=== PATIENT | female | born 1965 | race Caucasian/White ===

== ENCOUNTER → 2018-07-25 11:16 | Outpatient (CLI) | payer OTHER ==
[~2018-07-25 11:16] MED LIST: COLACE100 MG PO; PERCOCET 5-3251 EACH PO; SYNTHROID50 MCG PO
== END | disposition home or self-care (01) ==
LOC: LAB 11:16
DX: K60.1 Chronic anal fissure (principal); K62.5 Hemorrhage of anus and rectum; Z86.010 Personal history of colon polyps; K59.09 Other constipation

== ENCOUNTER 2018-07-27 09:35 | Inpatient (IN) | payer OTHER ==
[~2018-07-27] VITALS: Ht 162.6 cm; Wt 77.1 kg
[2018-07-27] MEDS ORDERED: SYNTHROID50 MCG PO (10:07)
[2018-07-28] MEDS ORDERED: COLACE100 MG PO (13:34)
[2018-07-28] MEDS ORDERED: PERCOCET 5-3251 EACH PO (13:34)
== END 2018-07-28 19:22 | disposition home or self-care (01) | DRG 348 ==
LOC: ER 09:35 → SEC-K 18:07 → SURG 18:07
PROVIDERS: Surgery
PROC: 0DBQ7ZZ Excision of Anus, Via Natural or Artificial Opening (ICD-10-PCS; 2018-07-28)
PROC: 3E0T3BZ Introduction of Anesthetic Agent into Peripheral Nerves and Plexi, Percutaneous Approach (ICD-10-PCS; 2018-07-28)
PROC: 0D8R3ZZ Division of Anal Sphincter, Percutaneous Approach (ICD-10-PCS; principal; 2018-07-28 21:30)
DX: K60.1 Chronic anal fissure (principal); D68.0 Von Willebrand disease; K62.5 Hemorrhage of anus and rectum; K62.89 Other specified diseases of anus and rectum

== ENCOUNTER → 2019-02-27 16:32 | Outpatient (CLI) | payer OTHER | END | disposition home or self-care (01) | LOC: LAB 16:32 | DX: D68.0 Von Willebrand disease (principal); E03.8 Other specified hypothyroidism; Z86.010 Personal history of colon polyps; D50.8 Other iron deficiency anemias; D51.8 Other vitamin B12 deficiency anemias; I10 Essential (primary) hypertension; D68.8 Other specified coagulation defects ==

== ENCOUNTER → 2019-03-05 | Day surgery (SDC) | payer OTHER | END | disposition home or self-care (01) | LOC: ADM 02-27 15:30 → AMB-ENDOS 08:00 → CIR.AMB 15:30 | DX: K57.30 Diverticulosis of large intestine without perforation or abscess without bleeding (principal); Z86.010 Personal history of colon polyps; K59.09 Other constipation ==

== ENCOUNTER 2019-05-08 07:29 | Outpatient (CLI) | payer OTHER | END 2019-05-08 07:47 | disposition home or self-care (01) | LOC: LAB 07:29 | DX: E03.8 Other specified hypothyroidism (principal); D68.0 Von Willebrand disease; Z86.010 Personal history of colon polyps; D50.8 Other iron deficiency anemias; D51.8 Other vitamin B12 deficiency anemias; I10 Essential (primary) hypertension; D68.8 Other specified coagulation defects ==

== ENCOUNTER 2019-09-17 07:51 | Outpatient (CLI) | payer OTHER | END 2019-09-17 08:07 | disposition home or self-care (01) | LOC: LAB 07:51 | DX: D50.8 Other iron deficiency anemias (principal); I10 Essential (primary) hypertension; D68.0 Von Willebrand disease; E03.8 Other specified hypothyroidism; Z86.010 Personal history of colon polyps; D51.8 Other vitamin B12 deficiency anemias; D68.8 Other specified coagulation defects ==

== ENCOUNTER 2020-03-20 07:15 | Outpatient (CLI) | payer OTHER | END 2020-03-20 07:25 | disposition home or self-care (01) | LOC: LAB 07:15 | PROVIDERS: ATTEND Internal Medicine Hematology & Oncology | DX: D68.0 Von Willebrand disease (principal); E03.8 Other specified hypothyroidism; D50.8 Other iron deficiency anemias; D51.8 Other vitamin B12 deficiency anemias; I10 Essential (primary) hypertension; D51.3 Other dietary vitamin B12 deficiency anemia; D51.1 Vitamin B12 deficiency anemia due to selective vitamin B12 malabsorption with proteinuria; D68.8 Other specified coagulation defects ==

== ENCOUNTER 2020-07-07 13:23 | Emergency (ER) | payer OTHER ==
[~2020-07-07] VITALS: Ht 162.6 cm; Wt 86.6 kg
[2020-07-07] MEDS ORDERED: GLYCOTROL CAPS1 EACH (14:28)
[2020-07-07] MEDS ORDERED: DDAVP 0.0110 MCG/0.1 (14:28)
[2020-07-07] MEDS ORDERED: ORPHENADRINE C100 MG PO (19:12)
[2020-07-07] MEDS ORDERED: ACETAMINOPHEN500 M1 PO (19:12)
== END 2020-07-07 20:06 | disposition home or self-care (01) ==
LOC: ER 13:23
DX: S46.011A Strain of muscle(s) and tendon(s) of the rotator cuff of right shoulder, initial encounter (principal); X50.9XXA Other and unspecified overexertion or strenuous movements or postures, initial encounter; Y93.89 Activity, other specified; Y92.89 Other specified places as the place of occurrence of the external cause; Y99.8 Other external cause status

== ENCOUNTER 2020-07-30 07:20 | Outpatient (CLI) | payer OTHER ==
[~2020-07-30 07:20] MED LIST changes: +ACETAMINOPHEN500 M1 PO; +DDAVP 0.0110 MCG/0.1; +GLYCOTROL CAPS1 EACH; +ORPHENADRINE C100 MG PO
[2020-08-05] MEDS ORDERED: NORFLEX PO (08:59)
[2020-08-05] MEDS ORDERED: VITAMIN B122500 MC1 SL (08:59)
== END 2020-07-30 07:38 | disposition home or self-care (01) ==
LOC: LAB 07:20
PROVIDERS: ATTEND Internal Medicine Hematology & Oncology
DX: D50.8 Other iron deficiency anemias (principal); I10 Essential (primary) hypertension; D68.8 Other specified coagulation defects; D68.0 Von Willebrand disease; D64.89 Other specified anemias; E03.8 Other specified hypothyroidism; Z86.010 Personal history of colon polyps; N60.11 Diffuse cystic mastopathy of right breast; N60.12 Diffuse cystic mastopathy of left breast

== ENCOUNTER 2020-08-12 06:43 | Day surgery (SDC) | payer OTHER ==
[~2020-08-12 06:43] MED LIST changes: +NORFLEX PO; +VITAMIN B122500 MC1 SL
== END 2020-08-12 16:40 | disposition home or self-care (01) ==
LOC: CIR.AMB 06:43
PROVIDERS: ATTEND Orthopaedic Surgery
DX: D17.21 Benign lipomatous neoplasm of skin and subcutaneous tissue of right arm (principal); Z20.828 Contact with and (suspected) exposure to other viral communicable diseases

== ENCOUNTER 2020-11-26 09:44 | Outpatient (CLI) | payer OTHER ==
[2020-12-02] MEDS ORDERED: HYDROCHLO PO (12:59)
[2020-12-02] MEDS ORDERED: DAILY MULTIPLE1 EAC2 PO (13:00)
== END 2020-11-26 10:34 | disposition home or self-care (01) ==
LOC: LAB 09:44
PROVIDERS: ATTEND Internal Medicine Hematology & Oncology
DX: E03.8 Other specified hypothyroidism (principal); I10 Essential (primary) hypertension; M54.5 Low back pain; Z01.810 Encounter for preprocedural cardiovascular examination; E78.89 Other lipoprotein metabolism disorders; D68.0 Von Willebrand disease; N60.01 Solitary cyst of right breast; N60.29 Fibroadenosis of unspecified breast; D50.8 Other iron deficiency anemias; R79.89 Other specified abnormal findings of blood chemistry; R74.02 Elevation of levels of lactic acid dehydrogenase [LDH]; K76.89 Other specified diseases of liver; D68.8 Other specified coagulation defects; N64.89 Other specified disorders of breast; Z86.010 Personal history of colon polyps; N60.11 Diffuse cystic mastopathy of right breast; N60.12 Diffuse cystic mastopathy of left breast

== ENCOUNTER 2020-12-09 05:33 | Day surgery (SDC) | payer OTHER ==
[~2020-12-09 05:33] MED LIST changes: +DAILY MULTIPLE1 EAC2 PO; +HYDROCHLO PO
[2020-12-09] MEDS ORDERED: PERCOCET 5-3251 EACH PO (08:53)
== END 2020-12-09 13:15 | disposition home or self-care (01) ==
LOC: CIR.AMB 05:33
PROVIDERS: ATTEND Orthopaedic Surgery
DX: M75.121 Complete rotator cuff tear or rupture of right shoulder, not specified as traumatic (principal); M66.821 Spontaneous rupture of other tendons, right upper arm; Z20.822 Contact with and (suspected) exposure to COVID-19

== ENCOUNTER → 2021-03-13 07:28 | Outpatient (CLI) | payer OTHER | END | disposition home or self-care (01) | LOC: LAB 07:28 | PROVIDERS: ATTEND Internal Medicine Hematology & Oncology | DX: N60.11 Diffuse cystic mastopathy of right breast (principal); D50.8 Other iron deficiency anemias; R79.89 Other specified abnormal findings of blood chemistry; I10 Essential (primary) hypertension; R74.02 Elevation of levels of lactic acid dehydrogenase [LDH]; K76.89 Other specified diseases of liver; D68.8 Other specified coagulation defects; D69.1 Qualitative platelet defects; N64.89 Other specified disorders of breast; N64.59 Other signs and symptoms in breast; E03.8 Other specified hypothyroidism; Z86.010 Personal history of colon polyps; N63.0 Unspecified lump in unspecified breast; N60.12 Diffuse cystic mastopathy of left breast ==

== ENCOUNTER 2021-11-11 06:23 | Outpatient (CLI) | payer OTHER | END 2021-11-11 06:24 | disposition home or self-care (01) | LOC: LAB 06:23 | PROVIDERS: ATTEND Internal Medicine Hematology & Oncology | DX: D50.8 Other iron deficiency anemias (principal); R79.89 Other specified abnormal findings of blood chemistry; I10 Essential (primary) hypertension; R74.02 Elevation of levels of lactic acid dehydrogenase [LDH]; K76.89 Other specified diseases of liver; D51.8 Other vitamin B12 deficiency anemias; D68.8 Other specified coagulation defects; C50.919 Malignant neoplasm of unspecified site of unspecified female breast; R97.8 Other abnormal tumor markers; C56.9 Malignant neoplasm of unspecified ovary; R97.1 Elevated cancer antigen 125 [CA 125]; R97.0 Elevated carcinoembryonic antigen [CEA]; D68.0 Von Willebrand disease; N64.59 Other signs and symptoms in breast; E03.8 Other specified hypothyroidism; Z86.010 Personal history of colon polyps; N60.11 Diffuse cystic mastopathy of right breast; N60.12 Diffuse cystic mastopathy of left breast ==

== ENCOUNTER 2021-11-24 05:26 | Day surgery (SDC) | payer OTHER ==
[~2021-11-24 05:26] MED LIST changes: +DESMOPRESS10 MCG/0.2; +MENEST0.3 MG PO
== END 2021-11-24 11:55 | disposition home or self-care (01) ==
LOC: CIR.AMB 05:26
PROVIDERS: ATTEND Orthopaedic Surgery
DX: M65.861 Other synovitis and tenosynovitis, right lower leg (principal); S83.281A Other tear of lateral meniscus, current injury, right knee, initial encounter; S83.241A Other tear of medial meniscus, current injury, right knee, initial encounter

== ENCOUNTER 2022-03-30 06:53 | Outpatient (CLI) | payer OTHER | END 2022-03-30 07:08 | disposition home or self-care (01) | LOC: LAB 06:53 | PROVIDERS: ATTEND Internal Medicine Hematology & Oncology | DX: D50.8 Other iron deficiency anemias (principal); R79.9 Abnormal finding of blood chemistry, unspecified; I10 Essential (primary) hypertension; R74.02 Elevation of levels of lactic acid dehydrogenase [LDH]; K76.89 Other specified diseases of liver; D51.8 Other vitamin B12 deficiency anemias; D68.8 Other specified coagulation defects; D69.1 Qualitative platelet defects; C50.919 Malignant neoplasm of unspecified site of unspecified female breast; R97.8 Other abnormal tumor markers; C56.9 Malignant neoplasm of unspecified ovary; R97.1 Elevated cancer antigen 125 [CA 125]; R97.0 Elevated carcinoembryonic antigen [CEA]; D68.0 Von Willebrand disease; N64.9 Disorder of breast, unspecified; N64.59 Other signs and symptoms in breast; E03.8 Other specified hypothyroidism; Z86.010 Personal history of colon polyps; N60.11 Diffuse cystic mastopathy of right breast; N60.12 Diffuse cystic mastopathy of left breast ==

== ENCOUNTER 2022-09-28 06:32 | Outpatient (CLI) | payer OTHER | END 2022-09-28 06:35 | disposition home or self-care (01) | LOC: LAB 06:32 | PROVIDERS: ATTEND Internal Medicine Hematology & Oncology | DX: D50.8 Other iron deficiency anemias (principal); R79.9 Abnormal finding of blood chemistry, unspecified; I10 Essential (primary) hypertension; R74.02 Elevation of levels of lactic acid dehydrogenase [LDH]; K76.89 Other specified diseases of liver; D51.8 Other vitamin B12 deficiency anemias; E55.9 Vitamin D deficiency, unspecified; D68.8 Other specified coagulation defects; D69.1 Qualitative platelet defects; C50.919 Malignant neoplasm of unspecified site of unspecified female breast; R97.8 Other abnormal tumor markers; C56.9 Malignant neoplasm of unspecified ovary; R97.1 Elevated cancer antigen 125 [CA 125]; R97.0 Elevated carcinoembryonic antigen [CEA]; Z86.010 Personal history of colon polyps ==

== ENCOUNTER 2023-03-25 06:43 | Outpatient (CLI) | payer OTHER | END 2023-03-25 06:48 | disposition home or self-care (01) | LOC: LAB 06:43 | PROVIDERS: ATTEND Internal Medicine Hematology & Oncology | DX: D50.8 Other iron deficiency anemias (principal); R79.9 Abnormal finding of blood chemistry, unspecified; I10 Essential (primary) hypertension; R74.02 Elevation of levels of lactic acid dehydrogenase [LDH]; K76.89 Other specified diseases of liver; D51.8 Other vitamin B12 deficiency anemias; E55.9 Vitamin D deficiency, unspecified; D68.8 Other specified coagulation defects; D69.1 Qualitative platelet defects; C50.919 Malignant neoplasm of unspecified site of unspecified female breast; R97.8 Other abnormal tumor markers; D56.9 Thalassemia, unspecified; R97.1 Elevated cancer antigen 125 [CA 125]; R97.0 Elevated carcinoembryonic antigen [CEA]; D68.00 Von Willebrand disease, unspecified; N64.9 Disorder of breast, unspecified; N64.59 Other signs and symptoms in breast; E03.8 Other specified hypothyroidism; Z86.010 Personal history of colon polyps; N63.0 Unspecified lump in unspecified breast; N60.11 Diffuse cystic mastopathy of right breast; N60.12 Diffuse cystic mastopathy of left breast ==

== ENCOUNTER 2023-08-25 13:30 | Outpatient (CLI) | payer OTHER | END 2023-08-25 13:36 | disposition home or self-care (01) | LOC: RAD 13:30 | PROVIDERS: ATTEND Orthopaedic Surgery | DX: M25.562 Pain in left knee (principal); Z88.1 Allergy status to other antibiotic agents ==

== ENCOUNTER 2023-08-29 07:55 | Outpatient (CLI) | payer OTHER | END 2023-08-29 07:56 | disposition home or self-care (01) | LOC: NUCLEAR 07:55 | DX: I82.401 Acute embolism and thrombosis of unspecified deep veins of right lower extremity (principal) ==

== ENCOUNTER 2023-09-20 05:41 | Day surgery (SDC) | payer OTHER ==
[2023-09-13 09:10] LABS: PH,URINE 7.5 (5.0-8.0); URINE APPEARANCE Cloudy; URINE BILIRRUBIN Negative (NEGATIVE); URINE BLOOD Negative; URINE COLOR Yellow; URINE GLUCOSE Negative (NEGATIVE); URINE LEUKOCYTE Negative; URINE NITRATE Negative; URINE PROTEIN Negative (NEGATIVE)
[2023-09-13 09:12] LABS: URINE BACTERIA 578.3 uL (0.0-1933); URINE RBC 4.7 uL (0.0-20.8); URINE WBC 4.4 uL (0.0-23.2)
[2023-09-13 09:29] LABS: HEMATOCRIT 44.1 % (36.0-45.00); HEMOGLOBIN 14.7 g/dL (12.0-15.00); MEAN CORPUSCULAR HEMOGLOBIN 29.3 pg (27.00-32.0); MEAN CORPUSCULAR HGB CONC 33.3 g/dl (32.0-36.0); PLATELET COUNT 226 K/uL (150-450); RED BLOOD COUNT 5.01 M/uL (4.00-6.00); RED CELL DISTRIBUTION WIDTH 13.4 % (11.5-14.5)
[2023-09-13 10:04] LABS: ALBUMIN 3.8 gm/dL (3.4-5.0); BILIRUBIN TOTAL 0.55 mg/dL (0.3-1.2); CALCIUM 9.6 mg/dL (8.5-10.1); CREATININE SERUM 0.72 mg/dL (0.55-1.02); GFR 83.79; GLOBULINA 3.4 G/DL (2.4-3.5); INR 0.98; PARTIAL THROMBOPLASTIN TIME 29.7 SECONDS (22.0-34.0); POTASSIUM 4.26 mEq/L (3.5-5.1); PROTHROMBIN TIME 10.3 SECONDS (9.0-11.5); TOTAL PROTEIN 7.2 gm/dL (6.4-8.2)
[2023-09-20] MEDS ORDERED: PERCOCET 5-3251 EACH PO (09:57)
== END 2023-09-20 12:30 | disposition home or self-care (01) ==
LOC: CIR.AMB 05:41
PROVIDERS: ATTEND Orthopaedic Surgery
DX: S83.281A Other tear of lateral meniscus, current injury, right knee, initial encounter (principal); M22.41 Chondromalacia patellae, right knee; M65.861 Other synovitis and tenosynovitis, right lower leg; M13.861 Other specified arthritis, right knee; Z20.822 Contact with and (suspected) exposure to COVID-19

== ENCOUNTER 2024-09-04 06:46 | Outpatient (CLI) | payer OTHER ==
[2024-09-04 07:48] LABS: HEMATOCRIT 42.6 % (36.0-45.00); HEMOGLOBIN 14.6 g/dL (12.0-15.00); MEAN CELL VOLUME 88.1 fL (80.00-100.00); MEAN CORPUSCULAR HEMOGLOBIN 30.1 pg (27.00-32.0); MEAN CORPUSCULAR HGB CONC 34.2 g/dl (32.0-36.0); PLATELET COUNT 212 K/uL (150-450); RED BLOOD COUNT 4.84 M/uL (4.00-6.00); RED CELL DISTRIBUTION WIDTH 13.5 % (11.5-14.5)
[2024-09-04 07:50] LABS: INR 0.99; PARTIAL THROMBOPLASTIN TIME 31.5 SECONDS (22.0-34.0); PROTHROMBIN TIME 10.8 SECONDS (9.0-11.5)
[2024-09-04 08:44] LABS: COL EPI 101 SECONDS (82-175)
[2024-09-04 08:59] LABS: ALBUMIN 3.5 gm/dL (3.4-5.0); BILIRUBIN TOTAL 0.5 mg/dL (0.3-1.2); CALCIUM 9.1 mg/dL (8.5-10.1); CREATININE SERUM 0.78 mg/dL (0.55-1.02); GFR 76.12; GLOBULINA 2.8 G/DL (2.4-3.5); POTASSIUM 3.96 mEq/L (3.5-5.1); TOTAL PROTEIN 6.3 gm/dL (6.4-8.2)
[2024-09-04 10:08] LABS: MANUAL PLATELET COUNT 420
[2024-09-04 10:10] LABS: PLATELET ESTIMATE NORMAL (NORMAL)
[2024-09-04 13:37] LABS: FOLIC ACID 10.38 ng/ml (4.78-20); VITAMIN D3 25 HYDROXY 69.38 ng/ml (30-120)
[2024-09-06 16:06] LABS: FACTOR VIII ACTIVITY 67 % (56-140); VON WILLERBRAND ACTIVITY 58 % (50-200); VON WILLERBRAND ANTIGEN 80 % (50-200)
== END 2024-09-04 06:53 | disposition home or self-care (01) ==
LOC: LAB 06:46
PROVIDERS: ATTEND Internal Medicine Hematology & Oncology
DX: D68.01 Von Willebrand disease, type 1 (principal); N64.9 Disorder of breast, unspecified; N64.59 Other signs and symptoms in breast; E03.8 Other specified hypothyroidism; N63 Unspecified lump in breast; N60.11 Diffuse cystic mastopathy of right breast; N60.12 Diffuse cystic mastopathy of left breast; D50.8 Other iron deficiency anemias; R79.9 Abnormal finding of blood chemistry, unspecified; I10 Essential (primary) hypertension; R74.02 Elevation of levels of lactic acid dehydrogenase [LDH]; K76.89 Other specified diseases of liver; D51.8 Other vitamin B12 deficiency anemias; E55.9 Vitamin D deficiency, unspecified; D68.8 Other specified coagulation defects

== ENCOUNTER → 2025-03-21 09:36 | Outpatient (CLI) | payer OTHER ==
[2025-03-21 11:36] LABS: BASO % 0.8 % (0.1-1.2); EOS % 1.7 % (0.7-7.0); HEMATOCRIT 45.1 % (34.1-44.9); HEMOGLOBIN 14.7 g/dL (11.2-15.7); LYMPH # 1.58 (1.18-3.74); LYMPH % 26.3 % (19.3-53.1); MEAN CORPUSCULAR HEMOGLOBIN 29.3 pg (25.6-32.2); MONO # 0.42 (0.24-0.82); NEUT # 3.83 (1.56-6.13); NEUT % 63.9 % (34.0-71.1); PLATELET COUNT 220 K/uL (163-369); RED BLOOD COUNT 5.01 M/uL (3.93-5.22); RED CELL DISTRIBUTION WIDTH 12.9 % (11.6-14.4)
[2025-03-21 11:45] LABS: INR 0.98; PARTIAL THROMBOPLASTIN TIME 30.2 SECONDS (22.0-34.0); PROTHROMBIN TIME 10.7 SECONDS (9.0-11.5)
[2025-03-21 11:57] LABS: ALBUMIN 3.7 gm/dL (3.4-5.0); BILIRUBIN TOTAL 0.48 mg/dL (0.3-1.2); CALCIUM 9.4 mg/dL (8.5-10.1); CREATININE SERUM 0.73 mg/dL (0.55-1.02); GFR 81.88; GLOBULINA 3.1 G/DL (2.4-3.5); POTASSIUM 4.4 mEq/L (3.5-5.1); TOTAL PROTEIN 6.8 gm/dL (6.4-8.2)
[2025-03-21 12:04] LABS: COL EPI 86 SECONDS (82-175)
[2025-03-21 12:18] LABS: FOLIC ACID 11.28 ng/ml (4.78-20); VITAMIN D3 25 HYDROXY 64.44 ng/ml (30-120)
[2025-03-25 01:06] LABS: FACTOR VIII ACTIVITY 54 % (56-140); VON WILLERBRAND ACTIVITY 79 % (50-200); VON WILLERBRAND ANTIGEN 86 % (50-200)
== END | disposition home or self-care (01) ==
LOC: LAB 09:36
PROVIDERS: ATTEND Internal Medicine Hematology & Oncology
DX: D50.8 Other iron deficiency anemias (principal); R79.9 Abnormal finding of blood chemistry, unspecified; I10 Essential (primary) hypertension; R74.02 Elevation of levels of lactic acid dehydrogenase [LDH]; K76.89 Other specified diseases of liver; D51.8 Other vitamin B12 deficiency anemias; E55.9 Vitamin D deficiency, unspecified; D68.8 Other specified coagulation defects; D69.1 Qualitative platelet defects; D68.01 Von Willebrand disease, type 1; N64.9 Disorder of breast, unspecified; N64.59 Other signs and symptoms in breast; E03.8 Other specified hypothyroidism; Z86.0100 Personal history of colon polyps, unspecified; N63.0 Unspecified lump in unspecified breast; N60.11 Diffuse cystic mastopathy of right breast; N60.12 Diffuse cystic mastopathy of left breast

== ENCOUNTER 2025-09-18 07:37 | Outpatient (CLI) | payer OTHER ==
[2025-09-18 08:38] LABS: BASO % 0.6 % (0.1-1.2); EOS # 0.14 (0.04-0.54); EOS % 2.2 % (0.7-7.0); LYMPH # 1.54 (1.18-3.74); LYMPH % 23.8 % (19.3-53.1); MEAN PLATELET VOLUME 10.90 fl (9.4-12.4); MONO # 0.42 (0.24-0.82); MONO % 6.5 % (4.7-12.5); NEUT # 4.29 (1.56-6.13); NEUT % 66.4 % (34.0-71.1); RED CELL DISTRIBUTION WIDTH 12.5 % (11.6-14.4)
[2025-09-18 09:01] LABS: INR 1.00
[2025-09-18 09:18] LABS: COL EPI 108 SECONDS (82-175)
[2025-09-18 09:24] LABS: ALT/SGPT 26.0 U/L (12-78); AST/SGOT 20.0 U/L (15-37); BILIRUBIN TOTAL 0.64 mg/dL (0.3-1.2); BUN CREA RATIO 20.0 (7.0-25.0); CREATININE SERUM 0.79 mg/dL (0.55-1.02); FE 85.0 ug/dl (50-170); GFR 74.75; GLOBULINA 3.0 G/DL (2.4-3.5); GLUCOSE FASTING 95.0 mg/dL (65-100); LDH 242.0 U/L (84-246); OSMOLALITY SERUM 282.0 MOSM/KG (275-295)
[2025-09-18 11:06] LABS: VITAMIN D3 25 HYDROXY 57.6 ng/ml (30-120)
[2025-09-20 12:50] LABS: FOLIC ACID 12.82 ng/ml (4.78-20)
[2025-09-21 16:06] LABS: FACTOR VIII ACTIVITY 60 % (56-140); VON WILLERBRAND ACTIVITY 86 % (50-200); VON WILLERBRAND ANTIGEN 82 % (50-200)
== END 2025-09-18 07:49 | disposition home or self-care (01) ==
LOC: LAB 07:37
PROVIDERS: ATTEND Internal Medicine Hematology & Oncology
DX: D50.8 Other iron deficiency anemias (principal); I10 Essential (primary) hypertension; R74.02 Elevation of levels of lactic acid dehydrogenase [LDH]; K76.89 Other specified diseases of liver; R79.9 Abnormal finding of blood chemistry, unspecified; E55.9 Vitamin D deficiency, unspecified; D68.8 Other specified coagulation defects; D68.01 Von Willebrand disease, type 1; N64.9 Disorder of breast, unspecified; N64.59 Other signs and symptoms in breast; E03.8 Other specified hypothyroidism; Z86.0100 Personal history of colon polyps, unspecified; N63 Unspecified lump in breast; N60.11 Diffuse cystic mastopathy of right breast; N60.12 Diffuse cystic mastopathy of left breast; M17.11 Unilateral primary osteoarthritis, right knee